=== PATIENT | female | born 1955 | race Caucasian/White ===

== ENCOUNTER 2021-09-06 14:36 | Outpatient (CLI) | payer MEDICARE, SELFPAY ==
--- NOTE | ~2021-09-06 | XR_ITS ---
EXAMINATION: XR foot RT 2V DATE: 09/06/2021 16:41 INDICATION: Multiple joint pain. TECHNIQUE: 2 views of right foot were obtained. COMPARISON: None. FINDINGS: Bone alignment is normal. No fracture. There is moderate osteoarthritis of first metatarsop halangeal joint and mild osteoarthritis of some of the midfoot joints and interphalangeal joints. The re is an enthesophyte at posterior aspect of calcaneal tuberosity. IMPRESSION: 1. Polyarticular osteoarthritis. Reviewed, dictated and finalized at location A. CAL RECEPTIONIST
--- NOTE | ~2021-09-06 | MR_ITS ---
EXAMINATION: MR cervical spine wo con DATE: 09/06/2021 16:13 INDICATION: Neck pain. TECHNIQUE: Magnetic resonance imaging (MRI) of the cervical spine was performed without intravenous c ontrast. Sequences included sagittal T2-weighted FSE, sagittal T2-weighted FS FSE, sagittal T1-weight ed FSE, axial MERGE, and axial T2-weighted FSE. COMPARISON: None FINDINGS: There is 2 mm anterolisthesis of C4 on C5. Vertebral body heights are normal. There is mild ly decreased disc height at C3-C4, moderately decreased disc height at C4-C5, and severely decreased disc height at C5-C6 and C6-C7. The spinal cord signal intensity is normal. The following disc levels are specifically discussed: C2-C3: The disc is bulging. There is no uncovertebral joint osteoarthritis. There is severe bilateral facet joint osteoarthritis. There is mild bilateral neural foraminal stenosis. There is no central c anal stenosis. C3-C4: The disc is bulging. There is moderate bilateral uncovertebral joint osteoarthritis. There is severe bilateral facet joint osteoarthritis. There is mild bilateral neural foraminal stenosis. There is no central canal stenosis. C4-C5: The disc is bulging. There is moderate right and severe left uncovertebral joint osteoarthriti s. There is moderate right and severe left facet joint osteoarthritis. There is mild bilateral neural foraminal stenosis. There is mild central canal stenosis. C5-C6: The disc is bulging. There is severe bilateral uncovertebral joint osteoarthritis. There is mi ld bilateral facet joint osteoarthritis. There is moderate bilateral neural foraminal stenosis. There is mild central canal stenosis with ventral indentation of the spinal cord. C6-C7: The disc is bulging. There is severe bilateral uncovertebral joint osteoarthritis. There is mi ld bilateral facet joint osteoarthritis. There is mild bilateral neural foraminal stenosis. There is mild central canal stenosis with ventral indentation of the spinal cord. C7-T1: There is a central protrusion. There is no uncovertebral joint osteoarthritis. There is severe right and moderate left facet joint osteoarthritis. There is mild right neural foraminal stenosis. T here is no central canal stenosis. IMPRESSION: 1. Severe cervical spondylosis. Reviewed, dictated and finalized at location A. SPERSON BOOKS
--- NOTE | ~2021-09-06 | XR_ITS ---
EXAMINATION: XR shoulder LT min 2V DATE: 09/06/2021 16:41 INDICATION: Multiple joint pain. TECHNIQUE: 1. AP and axillary views of the left shoulder were obtained. 2. AP and axillary views of the right shoulder were obtained. COMPARISON: None FINDINGS: Normal at both shoulders. No acute fracture. There are several old healed lateral right rib fractures . Bilateral glenohumeral joint spaces are normal. Mild bilateral sacroiliac osteoarthritis. No erosio ns to suggest inflammatory arthritis. Visualized portions of the lungs are clear. Soft tissues are un remarkable. IMPRESSION: Mild bilateral acromioclavicular osteoarthritis. Reviewed, dictated and finalized at location B. SION COATER
--- NOTE | ~2021-09-06 | XR_ITS ---
EXAMINATION: XR wrist LT 2V, XR hand BI arthritis min 3V, XR wrist RT 2V DATE: 09/06/2021 16:41 INDICATION: Multiple joint pain. TECHNIQUE: 1. Posteroanterior and lateral views of the left wrist were obtained. 2. Posteroanterior and lateral views of the right wrist were obtained. 3. PA and lateral views of the left and right hands as well as a ball-catcher's view of both hands. COMPARISON: none FINDINGS: 3 mm left ulnar minus variance and 2 mm right ulnar minus variance. Otherwise normal alignment at the bilateral hands and wrists. No fractures. Diffuse osteopenia. Polyarticular osteoarthritis at the bi lateral hands and wrists, moderate severity at the left first carpometacarpal joint and mild at the r ight first carpal metacarpal and triscaphe joints and mild at the bilateral distal radioulnar and mul tiple bilateral interphalangeal joints with distal predominance. The metacarpophalangeal joints are r elatively preserved. No erosions to suggest an inflammatory arthritis. IMPRESSION: 1. Polyarticular osteoarthritis, moderate at the left first carpometacarpal joint and mild at many of the remaining joints in the bilateral hands with typical distribution. Reviewed, dictated and finalized at location B. ADMINISTRATOR IMPRESSION: 1. Polyarticular osteoarthritis, moderate at the left first carpometacarpal fannie nt and mild at many of the remaining joints in the bilateral hands with typical distribution. IMPRESSION: 1. Polyarticular osteoarthritis, moderate at the left first carpometacarpal fannie nt and mild at many of the remaining joints in the bilateral hands with typical distribution.
--- NOTE | ~2021-09-06 | XR_ITS ---
EXAMINATION: XR foot LT 2V DATE: 09/06/2021 16:41 INDICATION: Multiple joint pain TECHNIQUE: 1. Dorsoplantar and lateral views of the left foot were obtained. 2. Dorsoplantar and lateral views of the right foot were obtained. COMPARISON: None FINDINGS: Alignment at the bilateral feet. No fractures. Polyarticular osteoarthritis at the bilateral mid and forefeet, mild to moderate at the right first metatarsophalangeal joint and mild at the left first me tatarsophalangeal joint and several bilateral tarsometatarsal and interphalangeal joints. No erosions to suggest an inflammatory arthritis. Soft tissues are unremarkable with no ankle joint effusions. S mall bilateral Achilles calcaneal spurs. Diffuse osteopenia. IMPRESSION: 1. Polyarticular osteoarthritis at multiple joints in the bilateral mid and forefeet, mild to moderat e at the right first metatarsophalangeal joint and mild at the remaining joints. Reviewed, dictated and finalized at location B. ROOM ATTENDANT IMPRESSION: 1. Polyarticular osteoarthritis at multiple joints in the bilateral mid and for efeet, mild to moderate at the right first metatarsophalangeal joint and mild a t the remaining joints.
--- NOTE | ~2021-09-06 | XR_ITS ---
EXAMINATION: XR shoulder RT min 2V DATE: 09/06/2021 16:41 INDICATION: Multiple joint pain. TECHNIQUE: 2 views of right shoulder were obtained. COMPARISON: None. FINDINGS: Bone alignment is normal. No fracture. There is mild osteoarthritis of glenohumeral joint a nd moderate osteoarthritis of acromioclavicular joint. There is an old healed fracture right second r ib. IMPRESSION: 1. Polyarticular osteoarthritis. Reviewed, dictated and finalized at location A. ING MACHINE OPERATOR
--- NOTE | ~2021-09-06 | XR_ITS ---
EXAMINATION: XR hip BI wo pelvis DATE: 09/06/2021 16:41 INDICATION: Multiple joint pain. TECHNIQUE: 2 views of right hip and 2 views of left hip were obtained. COMPARISON: None. FINDINGS: Bone alignment is normal. No fracture. There is mild osteoarthritis of the hips. There is s evere facet joint osteoarthritis in lumbar spine. IMPRESSION: 1. Mild osteoarthritis of the hips. Reviewed, dictated and finalized at location A. SH MAKER
--- NOTE | ~2021-09-06 | MR_ITS ---
EXAMINATION: MR lumbar spine wo con DATE: 09/06/2021 16:14 INDICATION: Low back pain. TECHNIQUE: Magnetic resonance imaging (MRI) of the lumbar spine was performed without intravenous con trast. Sequences included sagittal T2-weighted FSE, sagittal T2-weighted FS FSE, sagittal T1-weighted FSE, and axial T2-weighted FSE. COMPARISON: None FINDINGS: There is 4 degrees levocurvature of lumbar spine. There is mild chronic anterior wedging of T11 and T12 vertebral bodies. There is mildly decreased disc height at T10-T11 and moderately decrea sed disc height at T11-T12 with endplate remodeling. The distal spinal cord signal intensity is mackenzie l. The conus medullaris is at L2. There are cysts in the kidneys measuring up to 15 mm on the right. The following disc levels are specifically discussed: L1-L2: The disc does not extend beyond the endplate margin. There is severe bilateral facet joint ost eoarthritis. There is no neural foraminal stenosis. There is no central canal stenosis. L2-L3: There is a left foraminal protrusion. There is severe bilateral facet joint osteoarthritis. Th ere is mild left neural foraminal stenosis. There is no central canal stenosis. L3-L4: The disc is mildly bulging. There is moderate bilateral facet joint osteoarthritis. There is m ild bilateral neural foraminal stenosis. There is no central canal stenosis. L4-L5: The disc is bulging. There is severe bilateral facet joint osteoarthritis. There is mild bilat eral neural foraminal stenosis. There is mild central canal stenosis. L5-S1: The disc does not extend beyond the endplate margin. There is severe bilateral facet joint ost eoarthritis. There is no neural foraminal stenosis. There is no central canal stenosis. IMPRESSION: 1. Mild lumbar spondylosis. Reviewed, dictated and finalized at location A. HERY SUPERVISOR IMPRESSION: 1. Mild lumbar spondylosis.
[2021-09-06 18:07] LABS: Creatine Kinase 29 U/L (30-135); Uric Acid 3.9 mg/dL (2.5-7.5)
[2021-09-06 18:11] LABS: Rheumatoid Factor < 8.6 IU/ML (<12)
[2021-09-06 18:30] LABS: Free T4 Free Thyroxine 1.22 ng/mL (0.78-2.19)
[2021-09-06 18:34] LABS: Erythrocyte Sedimentation Rate 6 mm/hr (0-20)
[2021-09-06 18:37] LABS: Thyroid Stimulating Hormone 0.964 uIU/mL (0.465-4.680)
[2021-09-07 09:04] LABS: CRP < 0.5 mg/dL (<1.0)
[2021-09-08 22:37] LABS: Anti Cyclic Citrullinated Pept 26 Units (<20)
[2021-09-09 06:20] LABS: Albumin 4.4 g/dL (3.8-4.8); Alpha 1 Globulin 0.3 g/dL (0.2-0.3); Alpha 2 Globulin 0.9 g/dL (0.5-0.9); Beta 1 Globulin 0.6 g/dL (0.4-0.6); Gamma Globulin 0.8 g/dL (0.8-1.7); Protein, Total 7.4 g/dL (6.1-8.1)
[2021-09-11 03:56] LABS: Creatinine, Random Urine 74 mg/dL (20-275); Total Protein/Creatinine Ratio 68 mg/g creat (21-161)
[2021-09-11 05:10] LABS: Vitamin B1 19 nmol/L (8-30)
[2021-09-20 14:11] LABS: Reference Lab Test Name 14-3-3 eta Protein
== END 2021-09-06 14:37 | disposition home or self-care (01) ==
LOC: ANHIMG 14:46
PROVIDERS: PCP Physician Assistant; Visit Provider Internal Medicine Rheumatology
DX: M16.0 Bilateral primary osteoarthritis of hip (principal); M19.071 Primary osteoarthritis, right ankle and foot; M47.892 Other spondylosis, cervical region; M47.896 Other spondylosis, lumbar region; M19.011 Primary osteoarthritis, right shoulder; M19.072 Primary osteoarthritis, left ankle and foot; M19.032 Primary osteoarthritis, left wrist; M19.031 Primary osteoarthritis, right wrist; M19.041 Primary osteoarthritis, right hand; M19.042 Primary osteoarthritis, left hand; M19.012 Primary osteoarthritis, left shoulder
CPT/HCPCS: 36415; 72141; 72148; 73030; 73100; 73130; 73521; 73620; 82550; 82570; 83036; 83520; 83735; 84155; 84156; 84165; 84166; 84207; 84252; 84425; 84439; 84443; 84550; 85652; 86038; 86039; 86140; 86147; 86200; 86430

== ENCOUNTER 2021-11-22 12:38 | Outpatient (CLI) | payer MEDICARE, SELFPAY ==
--- NOTE | ~2021-11-22 | MR_ITS ---
EXAMINATION: MR shoulder RT wo con DATE: 11/22/2021 13:50 INDICATION: Right shoulder pain TECHNIQUE: Magnetic resonance imaging (MRI) of the right shoulder was performed without intravenous c ontrast. Sequences included axial PD-weighted FS FSE, coronal oblique PD-weighted FS FSE, coronal obl ique T2-weighted FS FSE, sagittal PD-weighted FS FSE, and sagittal T1-weighted SE. COMPARISON: None. FINDINGS: Coracoacromial arch: The acromion undersurface is curved in morphology (type II). The coracoacromial ligament is normal. M oderate acromioclavicular osteoarthritis. Rotator cuff: Moderate supraspinatus and infraspinatus tendinopathy with articular sided tear along the medial rim of the superior facet footplate which measures 7 mm AP and 1.5-2 cm medial retraction of the torn art icular sided tendon. The tear involves one third to one half of the tendon thickness. The subscapular is and teres minor tendons are normal. Normal rotator cuff muscle bulk and signal. Biceps tendon, glenoid labrum and glenohumeral cartilage: Long head of the biceps tendon is normal. There is a tear at the base of the superior to posterior carbajal perior glenoid labrum which does appear to involve portion of the biceps anchor. There is an addition al separate small tear at the 6:00 position of the inferior labrum. Partial-thickness cartilage loss along the inferomedial aspect of the humeral head. Scattered chondral fissuring at the superomedial a nd superior aspect of the humeral head with a few tiny foci of increased subarticular marrow signal. Fluid: Minimal glenohumeral joint effusion. Increased fluid in the long head biceps tendon sheath consistent with mild bicipital tenosynovitis. No loose osteochondral bodies. Additional fluid in the subacromi al/subdeltoid bursa consistent with mild bursitis. Bones: Normal marrow signal with no edema, fracture or abnormal marrow replacing process. IMPRESSION: 1. Moderate supraspinatus and infraspinatus tendinopathy with small moderate severity articular sided supraspinatus tendon tear. 2. Labral tears at the superior to posterior superior glenoid labrum and smaller tear at the 6:00 pos ition of the inferior labrum. 3. Mild glenohumeral and moderate acromioclavicular osteoarthritis. 4. Mild bicipital tenosynovitis. 5. Mild subacromial/subdeltoid bursitis. Reviewed, dictated and finalized at location A. TY EQUIPMENT TESTING SPECIALIST IMPRESSION: 1. Moderate supraspinatus and infraspinatus tendinopathy with small moderate se verity articular sided supraspinatus tendon tear. 2. Labral tears at the superior to posterior superior glenoid labrum and smalle r tear at the 6:00 position of the inferior labrum. 3. Mild glenohumeral and moderate acromioclavicular osteoarthritis. 4. Mild bicipital tenosynovitis. 5. Mild subacromial/subdeltoid bursitis.
[2021-11-25 20:59] LABS: Scleroderma 70 Antibody <1.0
[2021-11-25 21:00] LABS: RNP Antibodies <1.0; SS-A <1.0; SS-B <1.0
== END 2021-11-22 12:39 | disposition home or self-care (01) ==
PROVIDERS: PCP Physician Assistant; Visit Provider Internal Medicine Rheumatology
DX: M75.21 Bicipital tendinitis, right shoulder (principal); M19.011 Primary osteoarthritis, right shoulder
CPT/HCPCS: 36415; 73221; 86225; 86235

== ENCOUNTER 2022-05-17 10:08 | Outpatient (CLI) | payer MEDICARE, SELFPAY ==
--- NOTE | 2022-06-12 09:51 | WPDSLEEPSTUD ---
Sleep Study Date of Study: 05/17/22 Ordering Provider: Josef Whiet PA-C Interpreting Physician: Lissette Flores DO Sleep Study Type: Split Polysomnogram Height: 1.6 m Weight: 76.657 kg Body Mass Index: 29.9 Neck Circumference (inches): 14 [place]: 5 Reason for Sleep Study Previously diagnosed ALVARO. Not compliant with PAP Therapy or mandibular advancement device. Sleep History The patient is a 66-year-old female with depression, ADD, hearing loss and previously diagnosed sleep apnea that had a sleep study ordered by her primary care physician for evaluation of sleep apnea. The patient is currently retired. She states that she normally sleeps in 2 hour increments. She has tried a dental device in the past but it caused pain so she stopped using it. The patient denies awakening from sleep short of breath. She occasionally awakens at night with heartburn, belching or cough. She occasionally has trouble sleeping when she has a cold. She denies waking up gasping for air throughout the night. She denies having breathing problems at night observed by herself or others. She constantly sweats excessively at night. She denies having heart palpitations or irregular heartbeats during the night. He rarely falls asleep during the day and never while driving. She occasionally has trouble at school or work due to sleepiness. She occasionally experiences vivid dreamlike scenes upon awakening or falling asleep. She denies feeling afraid going to sleep. She rarely has nightmares. She occasionally remembers her dreams. She occasionally has thoughts racing through her mind. She rarely feels sad, depressed or anxious. She occasionally has muscular tension. She frequently notices parts of her body jerk. She denies kicking during the night. She denies having crawling and aching feelings in her legs but will rarely have leg pain during the night. She denies waking up with morning jaw pain. She is occasionally bothered by pain during the day and occasionally awakened by pain during the night. She frequently wakes up feeling stiff in the morning. She rarely wakes up with sore achy muscles. She rarely wakes up with pain in the neck, spine or other joints. She goes to bed between midnight to 3:00 a.m. on both weekdays and weekends. He is unsure how long it takes her to fall asleep. She wakes up 4 times throughout the night to reposition, urinate or get a drink. She is able to fall back asleep within 5 minutes. She wakes up between 8-10 a.m. on both weekdays and weekends. She typically has 8 hours of sleep total but they are and 2 hour and her minutes. Will stay in bed for 60-90 minutes after waking up in the morning. She currently lives alone. She does not consume any caffeinated beverages within 2 hours of bedtime. She does not engage in physical exercise before bedtime he will read and watch television falling asleep. She does not take naps in the afternoon the evening. The patient does not consume any caffeinated beverages throughout the day. She denies tobacco, alcohol and recreational drug use. [facility] Past Medical History Medical History CTS (carpal tunnel syndrome) Papanicolaou smear for cervical cancer screening Positive MERLIN (antinuclear antibody) Screening mammogram, encounter for Torn rotator cuff Surgical History Surgical History H/O tubal ligation Hx of laparoscopic gastric banding S/P tonsillectomy Family History Family History Father Alcoholism Cancer Mother Hypertension Depression Sibling Cancer Hypertension Depression Grandparent Alcoholism Diabetes mellitus Hypertension Depression Cancer Heart disease Social History Social History Smoking status: Never smoker
[2022-06-12 10:45] VITALS: BMI 29.9
== END 2022-05-18 07:41 | disposition home or self-care (01) ==
LOC: ANHCSM 10:10
PROVIDERS: PCP Physician Assistant; Visit Provider Physician Assistant
DX: G47.33 Obstructive sleep apnea (adult) (pediatric) (principal)
CPT/HCPCS: 95811

== ENCOUNTER 2022-05-18 13:55 | Outpatient (CLI) | payer MEDICARE, SELFPAY | END 2022-05-18 13:56 | disposition home or self-care (01) | LOC: ANHAUDIO 13:57 | PROVIDERS: PCP Physician Assistant; Visit Provider Physician Assistant | DX: H90.3 Sensorineural hearing loss, bilateral (principal) | CPT/HCPCS: 92557; 92567 ==

== ENCOUNTER 2022-08-30 17:03 | Outpatient (CLI) | payer MEDICARE, SELFPAY ==
--- NOTE | ~2022-08-30 | XR_ITS ---
XR hip LT min 3V w AP pelvis 08/30/2022 17:34 INDICATION: Left hip pain PROCEDURE: 4 views left hip including AP pelvis COMPARISON: 09/06/2021 FINDINGS: Fracture, dislocation or subluxation is not identified. Pelvic rings are intact. The soft t issues appear within normal limits. No foreign bodies are identified. IMPRESSION: 1: NO ACUTE BONE OR JOINT ABNORMALITY IDENTIFIED. Reviewed, dictated and finalized at location A. CHBOARD WIRE WORKER HELPER
== END 2022-08-30 17:04 | disposition home or self-care (01) ==
LOC: ANHIMG 17:10
PROVIDERS: PCP Physician Assistant; Visit Provider Physician Assistant
DX: M25.552 Pain in left hip (principal)
CPT/HCPCS: 73502

== ENCOUNTER 2023-02-07 12:02 | Emergency (ER) | payer OTHER, SELFPAY ==
--- NOTE | ~2023-02-07 | CT_ITS ---
EXAMINATION: CT abdomen pelvis w con DATE: 02/07/2023 14:43 INDICATION: Left lower quadrant abdominal pain. Nausea and vomiting. TECHNIQUE: Computed tomography (CT) of the abdomen and pelvis was performed with 100 mL Omnipaque 350 intravenous contrast. Automated exposure control and iterative reconstruction technique were employe d. The dose-length product was 981.58 mGy-cm. COMPARISON: None. FINDINGS: The visualized portions of the lung bases demonstrate mild atelectasis. A calcified left nicole ng nodule is consistent with old granulomatous disease. No pleural effusion. The heart size is normal . No pericardial effusion. There are coronary artery calcifications. There is a small sliding hiatal hernia. There is a lap band around the proximal stomach in expected position. There is mild intrahepa tic biliary duct dilatation, likely secondary to cholecystectomy. Calcifications in the spleen are co nsistent with old granulomatous disease. There is a 6 mm cystic lesion in the tail of the pancreas. T he adrenal glands are normal. There are cysts in the kidneys measuring up to 17 mm on the right. Ther e is a 4 mm stone in proximal left ureter. There is mild left hydronephrosis. There is a 2 mm nonobst ructing left kidney stone. There are no dilated loops of bowel. There is diverticulosis of the colon without evidence of diverticulitis. The appendix is normal. There are no pathologically enlarged lymp h nodes. There is no free intraperitoneal fluid. There is severe thoracic spondylosis and mild lumbar spondylosis. IMPRESSION: 1. 4 mm stone in proximal left ureter with mild left hydronephrosis. 2. 2 mm nonobstructing left kidney stone. 3. 6 mm cystic lesion in the tail of the pancreas. The differential diagnosis includes pseudocyst, in traductal papillary mucinous neoplasm (IPMN), mucinous cystic neoplasm (MCN), serous cystadenoma, and neuroendocrine tumor. Abdomen MRI without and with contrast is recommended in 2 years. Reviewed, dictated and finalized at location E. IMPRESSION: 1. 4 mm stone in proximal left ureter with mild left hydronephrosis. 2. 2 mm nonobstructing left kidney stone. 3. 6 mm cystic lesion in the tail of the pancreas. The differential diagnosis i ncludes pseudocyst, intraductal papillary mucinous neoplasm (IPMN), mucinous cy stic neoplasm (MCN), serous cystadenoma, and neuroendocrine tumor. Abdomen MRI without and with contrast is recommended in 2 years.
[2023-02-07 12:22] VITALS: BP 115/84; PULSE 82; RESP 16; TEMP 36.4; O2SAT 99
[2023-02-07] MEDS: ONDANSETRON INJ 4 MG/2 ML VIAL IV PUSH (13:50)
[2023-02-07] MEDS: MORPHINE SULFATE (*CRX) 4 MG/ML INJ IV PUSH (13:50)
[2023-02-07 13:58] LABS: Basophils Percent Auto 0.5 % (0.2-1.2); Eosinophils Absolute Auto 0.2 K/mm3 (0-0.3); Eosinophils Percent Auto 2.6 % (0-4.4); Hematocrit 47.5 % (37.0-47.0); Immature Granulocyte Absolute 0.01 K/mm3 (0.00-0.031); Immature Granulocyte Percent A 0.1 % (0-0.5); Lymphocytes Absolute Auto 2.84 K/mm3 (0.9-3.2); Mean Corpuscular HGB Conc 31.6 g/dl (32-36); Mean Corpuscular Hemoglobin 29.6 pg (26-34); Mean Corpuscular Volume 93.9 fl (80-100); Mean Platelet Volume 9.8 fl (7.4-10.4); Monocytes Absolute Auto 0.4 K/mm3 (0.1-0.6); Monocytes Percent Auto 4.5 % (2.6-8.5); Neutrophils Absolute Auto 5.1 K/mm3 (1.3-6.7); Neutrophils Percent Auto 59.3 % (45.5-73.1); Platelet Count Result 274 k/mm3 (150-375); Red Blood Count 5.06 M/mm3 (4.2-5.4); Red Cell Distribution Width 12.4 % (11.5-14.5); White Blood Count 8.6 K/mm3 (4.5-10.0)
[2023-02-07 14:15] LABS: Alanine Aminotransferase 21 U/L (6-35); Albumin Level 4.4 g/dL (3.5-5.1); Alkaline Phosphatase 79 U/L (38-126); Anion Gap 3 mmol/L (8-16); Aspartate Amino Transferase 25 U/L (14-36); Bilirubin,Total 0.8 mg/dL (0.2-1.3); Blood Urea Nitrogen 12 mg/dL (7-17); Calcium 8.8 mg/dL (8.4-10.2); Carbon Dioxide 33 mmol/L (22-30); Chloride 106 mmol/L (98-107); Estimated CRCL calculation 57 ml/min; Estimated Glomerular Filt Rate > 60; Glucose 79 mg/dL (65-110); Potassium 3.4 mmol/L (3.4-5.0); Sodium 142 mmol/L (137-145)
--- NOTE | 2023-02-07 15:04 | ED.GENADULT ---
HPI - General Adult General Chief complaint: Nausea/Vomiting/Diarrhea Stated complaint: vomiting Time Seen by Provider: 02/07/23 12:56 History of Present Illness HPI narrative: Patient is a 67-year-old female who presents ER with left-sided abdominal pain. Sudden onset today. [place] like she needed to have a stool but it did not alleviate her discomfort. She is also tried some laxatives. Patient does have some nausea. Denies fevers or chills or sweats. No chest pain or chest pressure. No urinary frequency urgency or dysuria. No history of diverticulitis. Patient does have history of kidney stones but this feels different. Related Data Home Medications Medication Instructions Recorded Confirmed biotin 10,000 mcg capsule mcg PO 04/16/22 10/24/22 Allergies Allergy/AdvReac Type Severity Reaction Status Date / Time No Known Allergies Allergy Mild Verified 02/07/23 12:02 Review of Systems Review of Systems: All systems reviewed & are unremarkable except as noted in HPI and below Constitutional: Constitutional: Denies chills, Denies fatigue and Denies fever(s) ENT: Denies nasal congestion and Denies sore throat Cardiovascular: Cardiovascular: Denies chest pain and Denies radiating jaw, neck or arm pain Respiratory: Respiratory: Denies cough and Denies dyspnea Gastrointestinal: Gastrointestinal: Reports abdominal pain, Denies constipation, Denies diarrhea, Reports nausea and Denies vomiting Genitourinary: Genitourinary: Denies nocturia, Denies dysuria and Denies flank pain PMFSH Past Medical History Medical History (Updated 02/07/23 @ 16:17 by Darien Cifuentes MD) CTS (carpal tunnel syndrome) Papanicolaou smear for cervical cancer screening Positive MERLIN (antinuclear antibody) Postmenopausal Screening mammogram, encounter for Torn rotator cuff Surgical History Surgical History H/O tubal ligation Hx of laparoscopic gastric banding S/P tonsillectomy Family History Family History Father Alcoholism Cancer Mother Hypertension Depression Sibling Cancer Hypertension Depression Grandparent Alcoholism Diabetes mellitus Hypertension Depression Cancer Heart disease Social History Social History Smoking status: Never smoker Second hand tobacco smoke exposure: No Alcohol intake: never Substance use: never Substance use type: does not use Lack of Transportation: No Lack of Food: Never True Current Housing: I Have Housing Concerned About Future Housing: No Difficulty Paying Gas/Electric Bills: No Difficulty Paying for Meds: No Currently Unemployed: No Education: High School Diploma/GED Difficulty w/ Childcare or Family Care: No Living arrangements: other Additional living arrangements comments: Occupation/Education: retired Gender identity (if verbalized by the patient): Female Sexual Orientation (if Verbalized by the Patient): Straight or Heterosexual Exam Narrative: GENERAL: Well-appearing, well-nourished, and in no acute distress. HEAD: Normocephalic, atraumatic. ENT: Mucous membranes moist. NECK: Supple. CHEST: Clear to auscultation. No respiratory distress. HEART: Regular rate and rhythm. Normal peripheral pulses. ABDOMEN: Soft, tender palpation left lower quadrant, nondistended. EXTREMITIES: Normal range of motion. No edema. SKIN: Warm, dry, no rash. NEURO: Alert and oriented x3. PSYCH: Normal mood and affect. Course Course Emergency Course: Patient resting comfortably. Informed of results. Discussed treatment plan and patient verbalized understanding. Discharge home. Vital Signs Vital signs: Vital Signs Temperature 97.6 F 02/07/23 12:22 Pulse Rate 82 02/07/23 12:22 Respiratory Rate 16 02/07/23 12:22 Blood Pressure 115/84
[2023-02-07 15:25] LABS: Appearance Urine Clear (Clear); Bacteria Urine None Seen /hpf; Bilirubin Urine Negative (Negative); Blood Urine 3+ (Negative); Color Urine Yellow (Yellow); Glucose Urine UA Negative (Negative); Ketones Urine Negative (Negative); Leukocyte Esterase Ur Negative LEU/UL (Negative); Nitrate Urine Negative (Negative); Non Pathogenic Casts 0-2; Protein Urine Negative (Negative); RBC Urine 51-100 /hpf (0-2); Squamous Epithelial Cell Urine None seen /hpf (Few); Urobilinogen Urine 0.2 mg/dL (<2.0); WBC Urine 0-5 /hpf
[2023-02-07 15:49] LABS: Add Urine Microscopic? YES; Specific Grav Ur 1.082 (1.001-1.035)
[2023-02-07 16:35] VITALS: BP 112/76; PULSE 76; RESP 18; O2SAT 99
== END 2023-02-07 16:45 | disposition home or self-care (01) ==
PROVIDERS: Emergency Provider Emergency Medicine; PCP Physician Assistant
DX: N13.2 Hydronephrosis with renal and ureteral calculous obstruction (principal); K86.2 Cyst of pancreas
CPT/HCPCS: 36415; 74177; 80053; 81001; 85025; 96374; 96375; 99284; J2270; J2405; Q9967

== ENCOUNTER 2023-02-14 14:02 | Outpatient (CLI) | payer OTHER, SELFPAY ==
--- NOTE | ~2023-02-14 | XR_ITS ---
EXAMINATION: XR abdomen/kub 1V DATE: 02/14/2023 14:27 INDICATION: Left ureteral stone TECHNIQUE: A supine view of the abdomen on 2 radiographs was obtained. COMPARISON: CT dated 01/28/2023 FINDINGS: The 4 mm stone seen at the proximal left ureter on CT of the smaller 2 mm left renal stone are unable to be identified likely due to their small sizes and relatively low density. There are couple small calcified splenic granulomata in the left upper quadrant. There are couple calcified phleboliths in t he pelvis. No dilated loops of gas-filled bowel to suggest obstruction. Adjustable laparoscopic band in expected position with reservoir project over the right abdomen. Cholecystectomy clips in right up per quadrant. IMPRESSION: 1. Left renal and ureteral stones seen on CT are unable to be visualized likely due to their small si ze and relatively low density. Reviewed, dictated and finalized at location A. IMPRESSION: 1. Left renal and ureteral stones seen on CT are unable to be visualized likely due to their small size and relatively low density.
== END 2023-02-14 14:03 | disposition home or self-care (01) ==
PROVIDERS: PCP Physician Assistant; Visit Provider Nurse Practitioner Family
DX: N20.2 Calculus of kidney with calculus of ureter (principal)
CPT/HCPCS: 74018

== ENCOUNTER 2023-03-02 11:45 | Observation (INO) | payer OTHER, SELFPAY ==
[2023-03-02] VITALS (28 sets, daily range): BP systolic 105–151; BP diastolic 55–94; PULSE 68–92; RESP 16–20; TEMP 36.1–36.9; O2SAT 93–100
--- NOTE | ~2023-03-02 | XR_ITS ---
EXAMINATION: XR retrograde pyelo w/stent LT DATE: 03/03/2023 8:05 CDT INDICATION: LEFT CYSTO RETRO STONE EXTRACT STENT PLACEMENT . TECHNIQUE: 61 fluoroscopic images of the abdomen were obtained during left cystoscopy/ureteroscopy wi th stone extraction and stent placement, performed by the surgeon. I was not present in the operating room. Fluoroscopy exposure time was 15.8 seconds. DAP 0.34 mGym2. COMPARISON: None FINDINGS: Images demonstrate moderate left hydronephrosis, with suspected prominent left ureteral stent which a ppears to be in satisfactory position.. IMPRESSION: Left ureteral stent placement. Moderate left hydronephrosis. Please refer to procedural report for fu rther details. Reviewed, dictated and finalized at location [facility]. IMPRESSION: Left ureteral stent placement. Moderate left hydronephrosis. Please refer to pr ocedural report for further details.
--- NOTE | ~2023-03-02 | CT_ITS ---
EXAMINATION: CT abdomen pelvis w con DATE: 03/02/2023 13:29 INDICATION: Left upper and lower quadrant abdominal pain, left flank pain, nausea and vomiting. TECHNIQUE: Computed tomography (CT) of the abdomen and pelvis was performed with 100 CC Omnipaque 350 intravenous contrast. Automated exposure control and iterative reconstruction technique were employe d. Exam dose: 820.89 mGy-cm total exam DLP. COMPARISON: 02/14/2023 KUB 02/07/2023 CT abdomen pelvis FINDINGS: Normal heart size. No pericardial or pleural effusion. Small sliding hiatal hernia. Lap band in expected position. Stable appearing approximately 5 mm cystic lesion in the tail the pancreas, not significantly changed since 02/07/2023. Previous given differential diagnosis of pseudocyst, intraductal papillary mucinous neoplasm, mucinous cystic neoplasm, serous cystadenoma and neuroendocrine tumor applied. Status post cholecystectomy. This likely accounts for mild prominence of the intrahepatic and extrahepatic bile ducts. No hepatic, splenic or other pancreatic neoplasm is evident. Normal morphology of the adrenal glands. There are 2 up to approximately 1.7 cm left renal cysts and several small left renal cysts, the large st approximately 7 mm. There is moderately prominent right hydroureteronephrosis due to the previously reported approximatel y 4 mm calculus of the left ureter, now situated in the distal left ureter compared to proximal left ureteral position on 02/07/2023. Approximately 2 mm nonobstructing lower pole left renal calculus. No other urinary tract calculus is noted. No right hydroureteronephrosis. The uterus, adnexal areas and urinary bladder are unremarkable. Mild compression fracture deformity of T8 and T10. Degenerative disc disease involving particularly t he lower thoracic spine. Prominent degenerative change at the lumbar apophyseal joints with associate d grade 1 anterolisthesis at L4-5. IMPRESSION: Previously reported proximal left ureteral 4 mm calculus of 02/07/2023 is now in the dist al left ureter, with increased moderately severe left hydroureteronephrosis Bilateral renal cysts Status post cholecystectomy 5 mm cystic lesion in the pancreatic tail; abdominal MRI without and with IV contrast has been recomm ended in 2 years (02/07/2023 CT abdomen pelvis report) Small sliding hiatal hernia and lap band Reviewed, dictated and finalized at [facility]. Reviewed, dictated and finalized at location A. IMPRESSION: Previously reported proximal left ureteral 4 mm calculus of 023 is now in the distal left ureter, with increased moderately severe left hyd roureteronephrosis Bilateral renal cysts Status post cholecystectomy 5 mm cystic lesion in the pancreatic tail; abdominal MRI without and with IV co ntrast has been recommended in 2 years (02/07/2023 CT abdomen pelvis report) Small sliding hiatal hernia and lap band
[2023-03-02 12:18] LABS: Basophils Absolute Auto 0.1 K/mm3 (0.0-0.1); Basophils Percent Auto 0.7 % (0.2-1.2); Eosinophils Absolute Auto 0.3 K/mm3 (0-0.3); Eosinophils Percent Auto 3.6 % (0-4.4); Hematocrit 48.7 % (37.0-47.0); Hemoglobin 15.8 g/dL (12.0-15.0); Immature Granulocyte Absolute 0.02 K/mm3 (0.00-0.031); Immature Granulocyte Percent A 0.3 % (0-0.5); Lymphocytes Absolute Auto 2.27 K/mm3 (0.9-3.2); Lymphocytes Percent Auto 29.6 % (18.3-44.2); Mean Corpuscular HGB Conc 32.4 g/dl (32-36); Mean Corpuscular Volume 92.4 fl (80-100); Mean Platelet Volume 9.8 fl (7.4-10.4); Monocytes Absolute Auto 0.4 K/mm3 (0.1-0.6); Monocytes Percent Auto 4.8 % (2.6-8.5); Neutrophils Absolute Auto 4.7 K/mm3 (1.3-6.7); Platelet Count Result 262 k/mm3 (150-375); Red Blood Count 5.27 M/mm3 (4.2-5.4); Red Cell Distribution Width 12.5 % (11.5-14.5); White Blood Count 7.7 K/mm3 (4.5-10.0)
[2023-03-02 12:21] LABS: Appearance Urine Clear (Clear); Bacteria Urine None Seen /hpf; Bilirubin Urine Negative (Negative); Blood Urine 3+ (Negative); Color Urine Yellow (Yellow); Glucose Urine UA Negative (Negative); Ketones Urine Negative (Negative); Leukocyte Esterase Ur Trace LEU/UL (Negative); Nitrate Urine Negative (Negative); Non Pathogenic Casts 0-2; Protein Urine Trace mg/dL (Negative); RBC Urine 51-100 /hpf (0-2); Specific Grav Ur 1.021 (1.001-1.035); Squamous Epithelial Cell Urine None seen /hpf (Few); Urobilinogen Urine 0.2 mg/dL (<2.0); WBC Urine 0-5 /hpf; pH Urine 5.5 (5.0-9.0)
[2023-03-02 12:22] LABS: Add Urine Microscopic? YES
[2023-03-02 12:31] LABS: Alanine Aminotransferase 23 U/L (6-35); Albumin Level 4.6 g/dL (3.5-5.1); Alkaline Phosphatase 84 U/L (38-126); Anion Gap 6 mmol/L (8-16); Aspartate Amino Transferase 25 U/L (14-36); Bilirubin,Total 0.8 mg/dL (0.2-1.3); Blood Urea Nitrogen 14 mg/dL (7-17); Calcium 9.2 mg/dL (8.4-10.2); Carbon Dioxide 30 mmol/L (22-30); Chloride 105 mmol/L (98-107); Estimated CRCL calculation 49 ml/min; Estimated Glomerular Filt Rate > 60; Glucose 90 mg/dL (65-110); Potassium 4.2 mmol/L (3.4-5.0); Sodium 141 mmol/L (137-145)
--- NOTE | 2023-03-02 12:42 | ED.FEMALEGU ---
HPI - Female Genitourinary General Chief complaint: Urogenital-Female Stated complaint: kidney stone Time Seen by Provider: 03/02/23 12:00 History of Present Illness HPI Narrative: Patient is a 67-year-old female presenting with left-sided abdominal pain. Patient states that she was here several weeks ago and was diagnosed with a left-sided kidney stone. She followed up with urology and x-rays showed no evidence of stones. States that she has been doing well until today when she again developed severe left-sided abdominal and flank pain. States that she feels nauseated. She did have an episode of emesis earlier. She denies dysuria, hematuria, fevers or chills. No chest pain or shortness of breath. Denies further complaints. Related Data Home Medications Medication Instructions Recorded Confirmed bupropion HCl 200 mg tablet,12 hr 200 mg PO DAILY 03/02/23 03/07/23 sustained-release Allergies Allergy/AdvReac Type Severity Reaction Status Date / Time No Known Allergies Allergy Mild Verified 03/06/23 13:31 Review of Systems Review of Systems: All systems reviewed & are unremarkable except as noted in HPI and below PMFSH Past Medical History Medical History Hyperlipidemia Kidney stones Obstructive sleep apnea Vitamin D deficiency Surgical History Surgical History History of carpal tunnel release History of cholecystectomy History of laparoscopic adjustable gastric banding History of lithotripsy History of tonsillectomy History of tubal ligation Family History Family History Father Alcoholism Cancer Mother Hypertension Depression Sibling Cancer Hypertension Depression Grandparent Alcoholism Diabetes mellitus Hypertension Depression Cancer Heart disease Social History Social History Social History: Surrogate medical decision maker: Shabana Cifuentes, daughter. Code status: Full code. Smoking status: Never smoker Second hand tobacco smoke exposure: No Alcohol intake: unknown Substance use: never Substance use type: does not use Lack of Transportation: No Lack of Food: Never True Current Housing: I Have Housing Concerned About Future Housing: No Difficulty Paying Gas/Electric Bills: No Difficulty Paying for Meds: No Currently Unemployed: No Education: Trade/Vocational Certificate Difficulty w/ Childcare or Family Care: No Additional living arrangements comments: Divorce. Lives in [place]. Spiritual care concerns: No Exam Narrative: GENERAL: Well-appearing, well-nourished, and in no acute distress. HEAD: Normocephalic, atraumatic. EYES: PERRLA and EOMI. ENT: Nares clear, no rhinorrhea or epistaxis. Mucous membranes moist. NECK: Supple. CHEST: Clear to auscultation. No respiratory distress. HEART: Regular rate and rhythm. ABDOMEN: Soft, +LUQ and LLQ tenderness, +L CVA tenderness EXTREMITIES: Normal range of motion. No edema. SKIN: Warm, dry, no rash. NEURO: No focal deficits. Alert and oriented x3. PSYCH: Normal mood and affect. Course Vital Signs Vital signs: Vital Signs Temperature 97.9 F 03/02/23 11:48 Pulse Rate 80 03/02/23 11:48 Respiratory Rate 16 03/02/23 11:48 Blood Pressure 141/88 H 03/02/23 11:48 Pulse Oximetry 97 03/02/23 11:48 Temperature 97.2 F L 03/03/23 09:45 Pulse Rate 69 03/03/23 09:50 Respiratory Rate 16 03/03/23 09:50 Blood Pressure 116/59 L 03/03/23 09:45 Pulse Oximetry 94 03/03/23 09:50 Oxygen Delivery Room Air 03/03/23 09:50 Oxygen Flow Rate 6 03/03/23 08:50 MDM - Female Genitourinary MDM Narrative Medical decision making narrative: Patient is a 67-year-old female presenting with left-sided abdominal pain and vomiting. Vi
[2023-03-02] MEDS: SODIUM CHLORIDE 0.9% IV 1,000 ML 999 ML IV CONT (12:55)
[2023-03-02] MEDS: MORPHINE SULFATE (*CRX) 4 MG/ML INJ IV PUSH (12:56)
[2023-03-02] MEDS: ONDANSETRON INJ 4 MG/2 ML VIAL IV PUSH (12:56)
[2023-03-02 13:45] LABS: Lipase 137 U/L (23-300)
[2023-03-02] MEDS: KETOROLAC 15 MG/ML VIAL (*BKC) IV PUSH (17:16)
--- NOTE | 2023-03-02 18:17 | PC.NURSE ---
This patient, Cat Black, was admitted to Medical Room 243-01. Patient/family oriented to hospital policies and general routines including ID bracelet, bed and alarms, visiting hours, pain management, procedures, bathroom and other care routines, personal items, smoking policy, room service/diet, and visiting hours. Information on how to activate the Rapid Response Team has been discussed. Patient/Family are encouraged to report perceived risks to care and to ask questions if they do not understand what they are told or what they should do.
[2023-03-03] VITALS (7 sets, daily range): BP systolic 107–123; BP diastolic 54–73; PULSE 62–82; RESP 12–18; TEMP 36.2–36.3; O2SAT 93–100
--- NOTE | 2023-03-03 00:21 | PM.IMHP ---
H&P: HPI History of Present Illness Date/Time: 03/02/23 20:30 Chief Complaint: Left flank pain. Narrative: This is a pleasant 67-year-old female with history of kidney stones who presented to the emergency department via private vehicle from home for evaluation of left flank pain. Patient provides the following history. On 02/06/2023 she had similar left-sided flank pain associated with dry heaves, nausea, and vomiting for which she was seen in the ED the following day. CT scan showed a 4 mm on the proximal left ureter with mild left hydronephrosis, a 2 mm nonobstructing left kidney stone, and an incidental 6 mm cystic lesion in the tail of the pancreas. She received supportive treatment with improvement in her symptoms and she was discharged with prescriptions for tamsulosin, oxycodone, and ondansetron. Symptoms were better by the following day and to her knowledge she has not passed the stone. She followed up with Urology the following week and she had a KUB done in which the stones were not visualized due to small size and relatively and low density. She has been without pain since that time. However this morning while driving she developed sudden, severe ?hard? cramping pain in the left mid to low back radiating to the left lower quadrant into the groin. Associated symptoms include nausea, vomiting, and subsequent dry heaves. She denies fever, chills, sweats, dysuria, and hematuria. CT scan today showed that the previously reported proximal left ureteral 4 mm calculi had moved to the distal left ureter with increased moderately severe left hydroureteronephrosis. In the ED she received a dose of Zofran, Toradol, and morphine and she has been comfortable since that time. She is being admitted in this setting for pain control and urology consultation Review of Systems Review of Systems: Twelve systems were reviewed and are negative except for as per HPI [facility] Past Medical History Medical History (Updated 03/03/23 @ 14:29 by Fatemeh Hernadez PA-C) Hyperlipidemia Kidney stones Obstructive sleep apnea Vitamin D deficiency Surgical History Surgical History (Updated 03/03/23 @ 14:29 by Fatemeh Hernadez PA-C) History of carpal tunnel release History of cholecystectomy History of laparoscopic adjustable gastric banding History of lithotripsy History of tonsillectomy History of tubal ligation Family History Family History Father Alcoholism Cancer Mother Hypertension Depression Sibling Cancer Hypertension Depression Grandparent Alcoholism Diabetes mellitus Hypertension Depression Cancer Heart disease Social History Social History (Updated 03/03/23 @ 14:29 by Fatemeh Hernadez PA-C) Social History: Surrogate medical decision maker: Shabana Cifuentes, daughter. Code status: Full code. Smoking status: Never smoker Second hand tobacco smoke exposure: No Alcohol intake: unknown Substance use: never Substance use type: does not use Lack of Transportation: No Lack of Food: Never True Current Housing: I Have Housing Concerned About Future Housing: No Difficulty Paying Gas/Electric Bills: No Difficulty Paying for Meds: No Currently Unemployed: No Education: Trade/Vocational Certificate Difficulty w/ Childcare or Family Care: No Additional living arrangements comments: Divorce. Lives in [place]. Spiritual care concerns: No Meds Home Medications and Allergies Home Medications Medication Instructions Recorded Confirmed Type duloxetine 60 mg capsule,delayed 60 mg PO DAILY #90 caps 04/16/22 03/02/23 Rx release CPAP See Rx Instructions .Route 06/12/22 02/11/23 Rx .COMPLEX #1 unit multivitamin See Rx Instructions .Route 08/15/22 03/02/23 Rx .COMPLEX #30 tabs ondansetron 4 mg disintegrating 4 mg PO Q6H PRN nausea and 02/07/23 03/02/23 Rx tablet vomiting #10 tabs oxycodone-acetaminophen
[2023-03-03] MEDS: LACTATED RINGERS 1,000 ML 100 ML IV CONT (01:49)
[2023-03-03 04:48] LABS: Hematocrit 41.1 % (37.0-47.0); Hemoglobin 13.1 g/dL (12.0-15.0); Mean Corpuscular HGB Conc 31.9 g/dl (32-36); Mean Corpuscular Hemoglobin 29.8 pg (26-34); Mean Corpuscular Volume 93.6 fl (80-100); Mean Platelet Volume 9.6 fl (7.4-10.4); Platelet Count Result 212 k/mm3 (150-375); Red Blood Count 4.39 M/mm3 (4.2-5.4); Red Cell Distribution Width 12.5 % (11.5-14.5); White Blood Count 7.4 K/mm3 (4.5-10.0)
[2023-03-03 05:06] LABS: Anion Gap 0 mmol/L (8-16); Blood Urea Nitrogen 14 mg/dL (7-17); Calcium 8.1 mg/dL (8.4-10.2); Carbon Dioxide 32 mmol/L (22-30); Chloride 108 mmol/L (98-107); Estimated CRCL calculation 49 ml/min; Estimated Glomerular Filt Rate > 60; Glucose 90 mg/dL (65-110); Sodium 140 mmol/L (137-145)
--- NOTE | 2023-03-03 07:30 | PC.NURSE ---
To OR. Pre-Op RN called shift coordinator to have patient taken down. Patient concerned they have not signed consent or seen a doctor to explain procedure. Pre-op RN stated provider will speak with patient and obtain consent in pre-op. Patient wheeled off floor at 0715.
--- NOTE | 2023-03-03 07:34 | WPDANESEPPF ---
Anes - Initial Pre Proc Eval Procedure: Operation Date: 03/03/23 07:30 Proposed Procedures p Cysto, RPG, Stone Ext, Stent Placement(Left) - Harry Lockhart MD Date/Time: 03/03/23 07:34 Surgeon: Roberto Buckley MD Pre Op Diagnosis: Left Sided Ureteral Stone Patient Data Age: 67 Gender: F Height: 1.6 m Weight: 67 kg Last Vital Signs Temp 36.1 C L 03/02/23 23:19 Pulse 68 03/02/23 23:19 Resp 18 03/02/23 23:19 BP 126/59 L 03/02/23 23:19 Pulse Ox 97 03/02/23 23:19 O2 Del Method Room Air 03/02/23 20:00 Allergies Allergy/AdvReac Type Severity Reaction Status Date / Time No Known Allergies Allergy Mild Verified 02/11/23 13:26 Home Medications Medication Instructions Recorded Confirmed Type duloxetine 60 mg capsule,delayed 60 mg PO DAILY #90 caps 04/16/22 03/02/23 Rx release CPAP See Rx Instructions .Route 06/12/22 02/11/23 Rx .COMPLEX #1 unit multivitamin See Rx Instructions .Route 08/15/22 03/02/23 Rx .COMPLEX #30 tabs ondansetron 4 mg disintegrating 4 mg PO Q6H PRN nausea and 02/07/23 03/02/23 Rx tablet vomiting #10 tabs oxycodone-acetaminophen 5 mg-325 1 tablet PO Q6H PRN pain #10 tabs 02/07/23 03/02/23 Rx mg tablet (Percocet) tamsulosin 0.4 mg capsule 0.4 mg PO DAILY #7 caps 02/07/23 03/02/23 Rx bupropion HCl 200 mg tablet,12 hr 200 mg PO DAILY 03/02/23 03/02/23 History sustained-release Laboratory Tests 03/02/23 03/03/23 12:10 04:44 WBC 7.7 K/mm3 7.4 K/mm3 (4.5-10.0) (4.5-10.0) RBC 5.27 M/mm3 4.39 M/mm3 (4.2-5.4) (4.2-5.4) Hgb 15.8 H g/dL 13.1 g/dL (12.0-15.0) (12.0-15.0) Hct 48.7 H % 41.1 % (37.0-47.0) (37.0-47.0) MCV 92.4 fl 93.6 fl (80-100) (80-100) MCH 30.0 pg 29.8 pg (26-34) (26-34) MCHC 32.4 g/dl 31.9 L g/dl (32-36) (32-36) RDW 12.5 % 12.5 % (11.5-14.5) (11.5-14.5) Plt Count 262 k/mm3 212 k/mm3 (150-375) (150-375) MPV 9.8 fl 9.6 fl (7.4-10.4) (7.4-10.4) Immature Gran % (Auto) 0.3 % (0-0.5) Neut % (Auto) 61.0 % (45.5-73.1) Lymph % (Auto) 29.6 % (18.3-44.2) [place] % (Auto) 4.8 % (2.6-8.5) Eos % (Auto) 3.6 % (0-4.4) Baso % (Auto) 0.7 % (0.2-1.2) Lymph # (Auto) 2.27 K/mm3 (0.9-3.2) Barton # (Auto) 0.4 K/mm3 (0.1-0.6) Eos # (Auto) 0.3 K/mm3 (0-0.3) Baso # (Auto) 0.1 K/mm3 (0.0-0.1) Abs Immat Gran (auto) 0.02 K/mm3 (0.00-0.031) Absolute Neuts (auto) 4.7 K/mm3 (1.3-6.7) Absolute Nucleated RBC 0.0 K/mm3 (0.0-0.012) Nucleated RBC % 0.0 % (0.0-0.2) Sodium 141 mmol/L 140 mmol/L (137-145) (137-145) Potassium 4.2 mmol/L 4.0 mmol/L (3.4-5.0) (3.4-5.0) Chloride 105 mmol/L 108 H mmol/L (98-107) (98-107) Carbon Dioxide 30 mmol/L 32 H mmol/L (22-30) (22-30) Anion Gap 6 L mmol/L 0 L mmol/L (8-16) (8-16) BUN 14 mg/dL 14 mg/dL (7-17) (7-17) Creatinine 0.80 mg/dL 0.80 mg/dL (0.7-1.0) (0.7-1.0) Estim Creat Clear Calc 49 ml/min 49 ml/min Estimated GFR > 60 > 60 (59 - ) (59 - ) Glucose 90 mg/dL 90 mg/dL (65-110) (65-110) Calcium 9.2 mg/dL 8.1 L mg/dL (8.4-10.2) (8.4-10.2) Total Bilirubin 0.8 mg/dL (0.2-1.3) AST 25 U/L (14-36) ALT 23 U/L (6-35) Alkaline Phosphatase 84 U/L (38-126) Total Protein 8.0 g/dL (6.3-8.2) Albumin 4.6 g/dL (3.5-5.1) Lipase 137 U/L (23-300) Urine Color Yellow (Yellow) Urine Appearance Clear (Clear) Urine pH 5.5 (5.0-9.0) Ur Specific [place] 1.021 (1.001-1.035) Urine Protein Trace mg/dL (Negative) Urine Glucose (UA) Negative mg/dL (Negative) Urine Ketones Negative mg/dL (Negative) Ur Blood (Man) 3+ H (Negative) Urine Nitrate Negative (Negative) Urine Bilirubin Negative (Negative) Uri
--- NOTE | 2023-03-03 07:54 | WPDURCON ---
Assessment and Plan Assessment and plan (1) Hydronephrosis with urinary obstruction due to ureteral calculus: Code(s): N13.2 - Hydronephrosis with renal and ureteral calculous obstruction Status: Acute Assessment and Plan: plan for left sided ureteroscopy and stone extraction and stenting--risks and benefits discussed. Urology Consult Note HPI Date Seen: 03/03/23 Requesting Physician: Roberto Buckley MD Primary Care Provider: Josef White PA-C Consult Narrative Narrative: Cat Black is a 67 year old female with left 5mm stone---now with recurrent pain and migration of stone into distal ureter. Pain improved overnight but did not pass. No fevers. Review of Systems Review of Systems: no new changes Eyes: Comments: normal Respiratory: Comments: normal Gastrointestinal: Comments: no complaints Genitourinary: Comments: left ureteral stone---pain on left recurrent PMFSH Past Medical History Medical History CTS (carpal tunnel syndrome) Papanicolaou smear for cervical cancer screening Positive MERLIN (antinuclear antibody) Postmenopausal Screening mammogram, encounter for Torn rotator cuff Surgical History Surgical History H/O tubal ligation Hx of laparoscopic gastric banding S/P tonsillectomy Family History Family History Father Alcoholism Cancer Mother Hypertension Depression Sibling Cancer Hypertension Depression Grandparent Alcoholism Diabetes mellitus Hypertension Depression Cancer Heart disease Social History Social History Smoking status: Never smoker Second hand tobacco smoke exposure: No Alcohol intake: unknown Substance use: never Substance use type: does not use Lack of Transportation: No Lack of Food: Never True Current Housing: I Have Housing Concerned About Future Housing: No Difficulty Paying Gas/Electric Bills: No Difficulty Paying for Meds: No Currently Unemployed: No Education: Trade/Vocational Certificate Difficulty w/ Childcare or Family Care: No Living arrangements: other Additional living arrangements comments: Occupation/Education: retired Gender identity (if verbalized by the patient): Female Sexual Orientation (if Verbalized by the Patient): Straight or Heterosexual Spiritual care concerns: No Meds Home Medications and Allergies Home Medications Medication Instructions Recorded Confirmed Type duloxetine 60 mg capsule,delayed 60 mg PO DAILY #90 caps 04/16/22 03/02/23 Rx release CPAP See Rx Instructions .Route 06/12/22 02/11/23 Rx .COMPLEX #1 unit multivitamin See Rx Instructions .Route 08/15/22 03/02/23 Rx .COMPLEX #30 tabs ondansetron 4 mg disintegrating 4 mg PO Q6H PRN nausea and 02/07/23 03/02/23 Rx tablet vomiting #10 tabs oxycodone-acetaminophen 5 mg-325 1 tablet PO Q6H PRN pain #10 tabs 02/07/23 03/02/23 Rx mg tablet (Percocet) tamsulosin 0.4 mg capsule 0.4 mg PO DAILY #7 caps 02/07/23 03/02/23 Rx bupropion HCl 200 mg tablet,12 hr 200 mg PO DAILY 03/02/23 03/02/23 History sustained-release Allergies Allergy/AdvReac Type Severity Reaction Status Date / Time No Known Allergies Allergy Mild Verified 02/11/23 13:26 Vital Signs Vital Signs - 24 hr 03/02/23 11:48 03/02/23 13:03 03/02/23 14:32 Temperature 36.6 C Pulse Rate 80 78 92 Respiratory Rate 16 18 18 Blood Pressure 141/88 H 136/92 H 107/67 Pulse Oximetry 97 99 100 Oxygen Delivery 03/02/23 12:55 03/02/23 12:56 03/02/23 13:00 Temperature Pulse Rate 78 Respiratory Rate 18 Blood Pressure 136/92 H Pulse Oximetry 99 99 98 Oxygen Delivery 03/02/23 13:01 03/02/23 13:31 03/02/23 13:32 Temperature
[2023-03-03] MEDS: ceFAZolin 2 GM/D5W 50 ML 2 GM/50 ML BAG IVPB (08:00)
[2023-03-03] MEDS: LACTATED RINGERS 1,000 ML 30 ML IV CONT (08:00)
[2023-03-03] MEDS: LIDOCAINE HCL 2% GEL UROJET 10 ML PKG MUCOUS MEM (08:16)
--- NOTE | 2023-03-03 09:14 | W.PM.PROC2 ---
Procedure Note - Detailed Date of Procedure 03/03/23 Pre-op Diagnosis Left Sided Ureteral Stone Post-op Diagnosis Same Procedure Performed cystoscopy, left ureteroscopy with laser lithotripsy and stone extraction, and left stent Surgeon Harry Lockhart MD Anesthesia General Indications 5-6 mm left ureteral stone, left renal colic Description of Procedure Patient was placed lithotomy and a LMA anesthesia was completed. Her vaginal vault and pelvis were dressed and draped in sterile fashion. Cystoscopy was completed with 22 moldovan scope. The bladder was normal. Retrograde study was completed on the left with the sone visualize and left hydronephrosis. The ureter was dilated with an 8/10 dilator and rigid urethroscopy completed. The stone was visualized. A 200 micron holmium laser was used and the stone was fractured into tiny pieces. A Escape basket was used to clear the pieces. The ureter was filled with dye--no extravasation and a 6 moldovan variable length stent was placed with a good curl in the renal pelvis and in the bladder. Patient was transferred to recovery area in stable condition. Implants 6 moldovan variable length stent Estimated Blood Loss 0 Pathology Yes (left stone) Complications No immediate complications Condition Stable Disposition PACU
[2023-03-03] MEDS: TAMSULOSIN HCL 0.4 MG CAPSULE PO (10:27)
[2023-03-03] MEDS: DULoxetine HCL 60 MG CAPSULE.DR PO (10:27)
[2023-03-03] MEDS: buPROPion HCL SR (12HR) 100 MG TABCR 200 MG PO (10:27)
[2023-03-03] MEDS: MULTIVITAMINS THERAPEUTIC TAB (*BKC) 1 TABLET BY MOUTH (10:27)
--- NOTE | 2023-03-03 11:15 | PM.DS ---
DS: Admitting Diagnosis Discharge Date 03/03/23 1115 Admitting Diagnosis Obstructive renal stone with hydronephrosis, pancreatic liver lesion DS: Discharge Diagnosis Discharge Diagnosis (1) Hydronephrosis with urinary obstruction due to ureteral calculus: Code(s): N13.2 - Hydronephrosis with renal and ureteral calculous obstruction Status: Acute (2) Pancreatic lesion: Code(s): K86.9 - Disease of pancreas, unspecified Status: Acute Plan The patient presented to the emergency department for evaluation of sudden-onset left back and flank pain as per HPI. CT scan today showed that proximal ureteral stone seen on imaging last month has migrated to the distal ureter causing obstruction and moderately severe hydroureteronephrosis. She is being admitted for pain control and urology consultation. She will be NPO after midnight as she may very well need cystoscopy with stent placement. Analgesics and antiemetics available as needed. Continue IV fluid rehydration overnight. Incidental pancreatic cystic lesion is once again seen and radiologist recommends MRI with and without IV contrast in 2 years time. Her home medications will be reviewed and resumed as appropriate. DS: Summary Hospital Course Hospital Course: Patient is 67-year-old female with a past medical history of kidney stones, anxiety depression, urinary retention who presented to the ED with complaints of left flank pain. CT showed a 4 mm left ureter stone with left hydronephrosis. Urology was consulted patient was taken to the OR for cystoscopy with stent placement today. Patient has been doing well since admission and denies any current chest pain, shortness a breath, nausea, vomiting, diarrhea constipation. Labs vital signs are stable at this time. CT did indicate a pancreatic lesion which the patient has had a pass his and will need to follow up with her primary care provider for further evaluation and instructions. Patient was given pain medicine and has been doing well since admission. Currently patient is stable for discharge and will need to follow up with Urology for for stent removal as instructed. Status at Discharge Functional status at discharge: independent ambulation Overall status at discharge: patient is progressing back to baseline Time Spent with Patient Time attestation: Total time spent providing and/or coordinating discharge services: 48 minutes Time spent: Greater than 30 minutes Specific discharge activities: Diagnostic testing, chart review, developing a treatment plan, education, care coordination documentation, physical exam, result review Exam Narrative: General: well-nourished, well-appearing 67-year-old female, sitting up in bed, comfortable, NARD Neuro: awake, alert and oriented x4, speech clear, no focal neuro deficits noted HEENMT: normocephalic, atraumatic, EOMI, sclerae anicteric, moist oral mucosa Respiratory: Clear to auscultation bilaterally without crackles, rhonchi or wheezes, nonlabored breathing Cardio: regular rate, regular rhythm with S1-S2 Abdomen: nondistended, normoactive bowel sounds, soft, nontender to palpation Extremities: no edema, erythema, or tenderness to palpation, DP pulses 2+ bilaterally Skin: no rashes or lesions, warm and dry Psych: appropriate mood and affect, judgment and insight intact DS: Data Data Completed and Pending Pending studies at discharge: Pending at discharge 03/03/23 08:30 Surgical [PTH] Routine Labs on day of discharge: Labs from last 24 hours 03/03/23 03/02/23 04:44 12:10 WBC 7.4 7.7 RBC 4.39 5.27 Hgb 13.1 15.8 H Hct 41.1 48.7 H MCV 93.6 92.4 MCH 29.8 30.0 MCHC 31.9 L 32.4 RDW 12.5 12.5 Plt Count 212 262 MPV 9.6 9.8 Immature Gran % (Auto) 0.3 Neut % (Auto) 61.0 Lymph % (Auto) 29.6 [place] % (Auto) 4.8 Eos % (Auto) 3.6 Baso % (Auto) 0.7 Lymph # (Auto) 2.27 [place] # (Auto) 0.4 Eos # (Auto) 0.3 Baso # (Auto) 0.1 A
== END 2023-03-03 14:48 | disposition home or self-care (01) ==
LOC: ANHED 12:49 → ANH2MED 03-03 10:20
PROVIDERS: Physician Assistant; Urology; Admitting Provider Internal Medicine; Emergency Provider Emergency Medicine; PCP Physician Assistant; Visit Provider Student in an Organized Health Care Education/Training Program
PROC: (CPT 52352; principal; 2023-03-03 07:30)
DX: N13.2 Hydronephrosis with renal and ureteral calculous obstruction (principal); K86.2 Cyst of pancreas; R33.9 Retention of urine, unspecified; N28.1 Cyst of kidney, acquired; Z90.49 Acquired absence of other specified parts of digestive tract; K44.9 Diaphragmatic hernia without obstruction or gangrene; Z98.84 Bariatric surgery status; E78.5 Hyperlipidemia, unspecified; G47.33 Obstructive sleep apnea (adult) (pediatric); Z99.89 Dependence on other enabling machines and devices; F41.9 Anxiety disorder, unspecified; F32.A Depression, unspecified; E66.3 Overweight; Z68.26 Body mass index [BMI] 26.0-26.9, adult; E55.9 Vitamin D deficiency, unspecified; Z87.442 Personal history of urinary calculi; Z79.891 Long term (current) use of opiate analgesic; Z79.899 Other long term (current) drug therapy
CPT/HCPCS: 52356; 36415; 74177; 74420; 80048; 80053; 81001; 82365; 83690; 85025; 85027; 88300; 96361; 96374; 96375; 99285; A9270; C1758; C1769; C2617; G0378; J0690; J1100; J1885; J2250; J2270; J2370; J2405; J2704; J3010; J7030; J7120; Q9967

== ENCOUNTER 2023-04-12 15:21 | Outpatient (CLI) | payer OTHER, SELFPAY ==
--- NOTE | ~2023-04-12 | XR_ITS ---
EXAMINATION: XR abdomen/kub 1V DATE: 04/12/2023 15:47 INDICATION: Left flank pain. TECHNIQUE: A supine view of the abdomen on 2 radiographs was obtained. COMPARISON: CT abdomen and pelvis 03/02/2023 FINDINGS: There are no dilated loops of bowel. There is a large volume of stool in the colon. There i s a lap band in expected position. Surgical clips in the right upper quadrant are likely from cholecy stectomy. There is a phlebolith in left pelvis. IMPRESSION: 1. No visible urolithiasis. Reviewed, dictated and finalized at location E. IMPRESSION: 1. No visible urolithiasis.
[2023-04-12 17:17] LABS: Cholesterol 189 mg/dL (0-200); HDL Direct 60 mg/dL; Triglycerides 315 mg/dL (<150)
[2023-04-12 17:28] LABS: LDL Cholesterol Direct 87 mg/dL
[2023-04-12 17:48] LABS: Thyroid Stimulating Hormone 0.685 uIU/mL (0.465-4.680)
[2023-04-12 18:05] LABS: Vitamin D 25 Hydroxy 41.2 ng/mL
[2023-04-12 18:23] LABS: Folic Acid 7.4 ng/mL (2.76->20)
== END 2023-04-12 15:22 | disposition home or self-care (01) ==
PROVIDERS: PCP Physician Assistant; Visit Provider Urology
DX: E55.9 Vitamin D deficiency, unspecified (principal); E78.5 Hyperlipidemia, unspecified; R53.83 Other fatigue; R10.9 Unspecified abdominal pain
CPT/HCPCS: 36415; 74018; 80061; 82306; 82607; 82746; 84443

== ENCOUNTER 2023-09-10 08:50 | Outpatient (CLI) | payer OTHER, SELFPAY ==
--- NOTE | ~2023-09-10 | DEXA_ITS ---
Bone Density Report Name: ANA MENDIETA Age: 67 Sex: Female Ethnicity: White Date of : 1955 Indication: postmenopausal; screening for osteoporosis; height loss; prior fracture; Referring Provider: GILBERT AMEZCUA Study: Bone densitometry was performed. Exam Date: September 10, 2023 Accession number: [id number] Bone Density: Region BMD T-score Z-score Classification AP Spine(L1, L3, L4) 0.935 -1.1 0.9 Osteopenia Femoral Neck (Left) 0.639 -1.9 -0.2 Osteopenia Total Hip (Left) 0.782 -1.3 0.1 Osteopenia Femoral Neck (Right) 0.585 -2.4 -0.7 Osteopenia Total Hip (Right) 0.713 -1.9 -0.5 Osteopenia Total Hip Mean 0.748 -1.6 -0.2 Osteopenia World Health Organization criteria for BMD impression classify patients as: Normal (T-score at or above -1.0), Osteopenia (T-score between -1.0 and -2.5), or Osteoporosis (T-score at or below -2.5). 10-year Fracture Risk: FRAX not reported because: Prior hip or vertebral fracture Clinical Information Provided by Patient: Have had a previous hip or vertebral fracture Has had a low trauma fracture Patient maximum height was 64.5 Menopause Age: 45 No regular weight bearing exercise Onset of menses at age 13 Number of children 2 Impression: The patient has low bone mass, based on the Right Femoral Neck T-score. The patient has risk factors, including: previous fracture. Discussion: INCREASED RISK OF FRACTURE DUE TO HISTORY OF FRACTURE. The patient's previous fracture puts the patient at high risk of a future fracture. In untreated patients, the risk of osteoporotic fracture increases approximately two-fold for each 1.0 SD decrease in T-score. Low bone density is not the only risk factor for fracture; also consider factors such as patient's age, frailty or poor health, risk of falling, risk of injury, previous osteoporotic fracture, family history of osteoporosis, cigarette smoking, low body weight, etc. Not everyone with a low trauma fracture has osteoporosis; osteomalacia and other metabolic bone disorders should also be considered. Patients who have osteoporosis should be evaluated for specific diseases and conditions (secondary causes) that may cause or contribute to bone loss and fracture risk. National Osteoporosis Foundation (NOF) recommends pharmacologic intervention for patients with a prior hip or vertebral fracture regardless of BMD T-score. The patient should follow a healthful lifestyle (good nutrition with adequate calcium and vitamin D, and appropriate weight-bearing exercise). Follow-Up: Consider a repeat BMD and Vertebral Fracture Assessment (VFA) exam in 2 years or sooner if medically necessary, to reassess this patient's status. Reported by: ELEUTERIO on 09/10/2023 9:09:00 AM. Rai, [email or web address]
== END 2023-09-10 08:51 | disposition home or self-care (01) ==
LOC: ANHIMG 08:51
PROVIDERS: PCP Physician Assistant; Visit Provider Physician Assistant
DX: Z78.0 Asymptomatic menopausal state (principal); M85.89 Other specified disorders of bone density and structure, multiple sites
CPT/HCPCS: 77080